=== PATIENT | male | born 1965 | race Caucasian/White ===

== ENCOUNTER 2018-11-04 03:48 | Inpatient (IN) | payer MEDICAID ==
[~2018-11-04] VITALS: Ht 167.6 cm; Wt 50.3 kg
[2018-11-04 04:50] VITALS: BP 122/75
--- NOTE | 2018-11-04 04:50 | NUR ---
MS RN NOTE PT ARRIVED TO UNIT VIA GURNEY ACCOMPANIED BY AMBULANCE PERSONNEL. PT IN STABLE CONDITION, A&O X3 ABLE TO MAKE NEEDS KNOWN. NO SIGNS OF SOB OR DISTRESS, NO C/O PAIN. IV IN R AC #20, IN PLACE H/L. ALL CURRENT NEEDS ATTENDED TO. BED LOW LOCKED, UPPER RAILS UP, AND CALL LIGHT WITHIN REACH. WILL CONT. TO MONITOR. BODY ASSESSED, AND BELONGINGS ACCOUNTED FOR, AND PLACED IN CHART. DR. GALEANA NOTIFIED OF PT ARRIVAL. AWAITING NEW ORDERS.
[2018-11-04 05:00] VITALS: BP 122/75
--- NOTE | 2018-11-04 06:14 | NUR ---
MS RN NOTE PT IN STABLE CONDITION, A&O X3 ABLE TO MAKE NEEDS KNOWN. NO SIGNS OF SOB OR DISTRESS, NO C/O PAIN. IV IN R AC #20, IN PLACE H/L. ALL CURRENT NEEDS ATTENDED TO. BED LOW LOCKED, UPPER RAILS UP, AND CALL LIGHT WITHIN REACH. WILL CONT. TO MONITOR AND ENDORSE TO NEXT SHIFT FOR RAJWINDER. STILL AWAITING ADMISSION ORDERS. DR. GALEANA AWARE.
[2018-11-04] MEDS ORDERED: HYDROCODONE/APAP 5/325MG 1 EACH TABLET PO PRN (06:30)
[2018-11-04] MEDS ORDERED: ONDANSETRON HCL/PF 4 MG/2 ML VIAL IVP PRN (06:30)
[2018-11-04] MEDS ORDERED: MAGNESIUM HYDROXIDE 30 ML UDC PO PRN (06:30)
[2018-11-04] MEDS ORDERED: ACETAMINOPHEN 325 MG TABLET PO PRN (06:30)
--- NOTE | 2018-11-04 07:15 | NUR ---
MS RN OPENING NOTES RECEIVED PATIENT IN BED, ALERT AND AWAKE ORIENTED X4. NO SOB. DENIES ANY C/O PAIN NOR DISCOMFORT. RIGHT AC PERIPHERAL LINE INTACT. RESTING COMFORTABLY IN BED. CALL LIGHT WITHIN REACH. BED IN LOWEST POSITION. BED SIDERAILS UPX2.
[2018-11-04 08:00] VITALS: BP 100/51
[2018-11-04] MEDS: PANTOPRAZOLE 40 MG TABLET.DR PO SCH (08:02)
[2018-11-04 09:07] LABS: CALCIUM, SERUM 8.2 mg/dL (8.5-10.1); CREATININE 1.2 mg/dL (0.6-1.3); POTASSIUM 3.9 mmol/L (3.5-5.1)
[2018-11-04 09:11] LABS: BASOPHILS % (AUTO) 0.5 % (0.0-2.0); EOSINOPHILS % (AUTO) 8.4 % (0.0-6.0); HEMATOCRIT 23 % (39-51); HEMOGLOBIN 7.8 g/dL (13.5-17.5); LYMPHOCYTES # (AUTO) 0.3 /CMM (0.8-4.8); LYMPHOCYTES % (AUTO) 17.8 % (20.0-44.0); MEAN CORPUSCULAR HGB CONC 33 g/dl (31.0-36.0); MEAN CORPUSCULAR VOLUME 83 fL (80-96); MONOCYTES # (AUTO) 0.4 /CMM (0.1-1.30); MONOCYTES % (AUTO) 28.6 % (2.0-12.0); NEUTROPHILS # (AUTO) 0.7 /CMM (1.8-8.9); NEUTROPHILS % (AUTO) 44.7 % (43.0-81.0); PLATELET COUNT (AUTO) 312 /CMM (150-450); RED BLOOD CELL COUNT(AUTO) 2.84 MIL/uL (4.5-6.0)
[2018-11-04 09:13] LABS: ALBUMIN 1.8 g/dL (3.4-5.0); BILIRUBIN,TOTAL 0.1 mg/dL (0.2-1.0); MAGNESIUM 1.7 mg/dL (1.8-2.4)
[2018-11-04 09:19] LABS: THYROID STIMULATING HORMONE 0.99 uIU/mL (0.358-3.74)
--- NOTE | 2018-11-04 09:37 | NUR ---
MS RN NOTES PATIENT AMBULATED WITH PT USING SINGLE CANE. OBSERVED PATIENT WITH STEADY GAIT, JASMIN PT WELL.
[2018-11-04 09:43] LABS: WHITE BLOOD COUNT (AUTO) 1.5 K/uL (4.3-11.0)
--- NOTE | 2018-11-04 09:47 | NUR ---
MS RN NOTES RECEIVED LAB RESULTS OF WBC 1.5 C/O PETER, RELAYED TO DR. DRAPER WITH NO NEW ORDER AT THIS TIME. PATIENT NEUT 44.7
[2018-11-04] MEDS ORDERED: CEFTRIAXONE 1 G in IV D5W 50 ML IV SCH (11:00)
[2018-11-04] MEDS ORDERED: AZITHROMYCIN 500 MG in IV D5W 250 ML IV SCH (12:00)
--- NOTE | 2018-11-04 12:23 | NUR ---
MS RN NOTES ROCEPHIN IV ATB GIVEN LATE DUE TO AWAITING FOR MEDICATION FROM PHARMACY.
[2018-11-04 13:23] LABS: OCCULT BLOOD STOOL NEGATIVE (NEGATIVE)
[2018-11-04] MEDS ORDERED: TBO-FILGRASTIM 300 MCG/0.5 ML SYRINGE SQ SCH (15:00)
[2018-11-04 15:33] LABS: LYMPHOCYTES % (MANUAL) 22 % (16-48); MONOCYTES % (MANUAL) 24 % (0-11.0); NEUTROPHILS % (MANUAL) 48 (42-76)
[2018-11-04 15:34] LABS: EOSINOPHILS % (MANUAL) 6 % (0-4)
[2018-11-04 15:50] VITALS: BP 126/71
--- NOTE | 2018-11-04 16:32 | NUR ---
MS RN NOTES RECEIVED A CALL FROM LAB AND SPOKE TO MALENA, PER MALENA THEY DON'T HAVE ENOUGH STAFF AND WILL SEND THE DIC TO [facility] AND THE RESULT WON'TBE IN TILL LATER.
[2018-11-04 16:41] LABS: THYROID STIMULATING HORMONE 0.797 uIU/mL (0.358-3.74)
[2018-11-04 17:01] LABS: APPEARANCE,URINE Clear (CLEAR); BILIRUBIN,URINE Negative (NEGATIVE); BLOOD, URINE Small Ery/uL (NEGATIVE); COLOR,URINE Yellow (YELLOW); KETONES,URINE Negative (NEGATIVE); LEUKOCYTE ESTERASE ,URINE Negative (NEGATIVE); NITRITE, URINE Negative (NEGATIVE); PH,URINE 5.5 (5.0-8.0); PROTEIN,URINE Negative (NEGATIVE); UGLUCOSE Negative (NEGATIVE); UROBILINOGEN,URINE 0.2 EU/dL (0.2)
[2018-11-04 17:35] LABS: BACTERIA,URINE Rare /HPF (None Seen); SQUAMOUS EPITHELIAL CELL,UR Few /HPF (None Seen); WBC,URINE NONE SEEN /HPF (0-3)
[2018-11-04 18:37] LABS: D-DIMER 3.17 mg/L(FEU (0.17-0.50)
--- NOTE | 2018-11-04 18:45 | NUR ---
MS RN CLOSING NOTES PATIENT IN BED, ALERT AND AWAKE ORIENTED X4. WATCHING TV. NO SOB. DENIES ANY C/O PAIN NOR DISCOMFORT. RIGHT AC G#20 INTACT AND PATENT. IV ROCEPHIN 1GM AND ZITHROMAX 500 MG IV GIVEN ORDERED JASMIN WELL WITHOUT ASE NOTED. RESTING COMFORTABLY IN BED. CALL LIGHT WITHIN REACH. BED IN LOWEST POSITION. BED SIDERAILS UPX2.
--- NOTE | 2018-11-04 19:00 | NUR ---
MS RN NOTE RECEIVED PT. STABLE CONDITION A&O X3. CURRENTLY IN BED WATCHING TV. NO SIGNS OF SOB OR DISTRESS, NO C/O PAIN. IV IN R AC IN PLACE. ALL CURRENT NEEDS MET. BED LOW, LOCKED, UPPER RAILS UP AND CALL LIGHT WITHIN REACH. WILL CONT. TO MONITOR.
[2018-11-04 20:00] VITALS: BP 114/73
--- NOTE | 2018-11-05 06:28 | NUR ---
MS RN NOTE PT. STABLE CONDITION A&O X3. CURRENTLY IN BED,RESTING, EASILY AROUSABLE WHEN NAME IS CALLED. NO SIGNS OF SOB OR DISTRESS, NO C/O PAIN. IV IN R AC IN PLACE. ALL CURRENT NEEDS MET. BED LOW, LOCKED, UPPER RAILS UP AND CALL LIGHT WITHIN REACH. WILL CONT. TO MONITOR AND ENDORSE TO NEXT SHIFT FOR RAJWINDER.
[2018-11-05 08:00] VITALS: BP 111/64
--- NOTE | 2018-11-05 08:00 | NUR ---
m/s paper carrier: initial assessment received pt in bed awake, a/ox3; passive and withdrawn. encouraged to verbalized feelings. no c/o pain or any discomfort. instructed to call for assistance. will continue to monitor.
[2018-11-05] MEDS: PANTOPRAZOLE 40 MG TABLET.DR PO SCH (08:48)
--- NOTE | 2018-11-05 10:05 | NUR ---
m/s detention attendant: md visit seen by payam zimmer with new orders. order acknowledged. for social service consult for referral to the nearest HIV clinic. pt aware. pt for d'c planning today per acnp.
[2018-11-05 10:18] LABS: BASOPHILS % (AUTO) 0.3 % (0.0-2.0); HEMATOCRIT 23 % (39-51); HEMOGLOBIN 7.7 g/dL (13.5-17.5); LYMPHOCYTES # (AUTO) 0.5 /CMM (0.8-4.8); LYMPHOCYTES % (AUTO) 3.4 % (20.0-44.0); MEAN CORPUSCULAR HGB CONC 33 g/dl (31.0-36.0); MEAN CORPUSCULAR VOLUME 82 fL (80-96); MONOCYTES # (AUTO) 1.2 /CMM (0.1-1.30); MONOCYTES % (AUTO) 8.9 % (2.0-12.0); NEUTROPHILS # (AUTO) 11.3 /CMM (1.8-8.9); NEUTROPHILS % (AUTO) 85.4 % (43.0-81.0); PLATELET COUNT (AUTO) 305 /CMM (150-450); RED BLOOD CELL COUNT(AUTO) 2.85 MIL/uL (4.5-6.0); WHITE BLOOD COUNT (AUTO) 13.3 K/uL (4.3-11.0)
[2018-11-05 10:21] LABS: CALCIUM, SERUM 8.2 mg/dL (8.5-10.1); CREATININE 1.1 mg/dL (0.6-1.3); POTASSIUM 3.8 mmol/L (3.5-5.1)
--- NOTE | 2018-11-05 11:32 | NUR ---
WOUND CARE CONSULT: PT PRESENTS WITH SACRAL SCARRING, PRESENT ON ADMISSION. RECOMMENDATIONS MADE FOR SKIN PROTECTION. DISCUSSED WITH NURSING STAFF. WILL SEE PRN. OAKES IN AGREEMENT WITH PLAN OF CARE. PT IS CONTINENT. Addendum: 11/05/18 at 1133 by MERISSA HANLEY WNDNU Amended: Links added.
--- NOTE | 2018-11-05 12:26 | NUR ---
Social service consult requested by PHYLICIA Powell for referral to the nearest HIV clinic. Pt. is a 52 year old male who was admitted to [facility] for syncope.ALBA met with pt. soila. Pt. is alert and oriented 4. Pt. has tattoos all over. Pt states he was diagnosed with HIV on July 2017. The pt. states that he was infected with HIV from his girlfriend. The patient currently resides with his father, he is not , and he does not have any children. The patient denies tobacco, alcohol, or illicit drug use. However, he admits to chronic marijuana use. Pt. is non-compliant with his HIV medications. ALBA referred pt. to [facility] located at [address] [place] [address]. [address], [place], [id number] . ALBA encouraged pt. to follow up with the clinic. No other social service needs are requested at this time. SW is available, if needed.
[2018-11-05 13:28] VITALS: BP_SYST 103; BP_SYST 105; BP_DIAS 61; BP_DIAS 76; BP_DIAS 78
--- NOTE | 2018-11-05 13:28 | NUR ---
m/s soil scientist: neuro consult seen and examined by brandy (bernie) with new order. order acknowledged. orthostatic blood pressure done as ordered.
--- NOTE | 2018-11-05 15:15 | NUR ---
m/s slide fasteners inspector: notes taken down for ct head via w/c at this time.
--- NOTE | 2018-11-05 15:30 | NUR ---
m/s ground instructor basic: notes pt back from ct scan. instructed to call for assistance. will monitor.
[2018-11-05 16:00] VITALS: BP 109/69
--- NOTE | 2018-11-05 18:55 | NUR ---
m/s coil cutter: notes pt resting comfortable with no distress noted. needs attended. ct head result still pending. instructed to call for assistance. will continue to monitor.
--- NOTE | 2018-11-05 19:15 | NUR ---
m/s finisher wallboard and plasterboard: notes report given to kelton (josh) for continuity of care.
--- NOTE | 2018-11-05 19:25 | NUR ---
MSRN AWAKE, LIMITED VERBAL, NO RESPIRATORY DISTRESS. DOES NOT VERBALIZED ANY DISCOMFORTS OF THIS TIME. REMINDED TO CALL STAFF FOR ANY ASSISTANCE OR DISCOMFORTS CALL LIGHT WITHIN REACH. SAFETY PRECAUTIONS EMPHASIZED. CLOSELY WATCHED.
[2018-11-05 20:00] VITALS: BP 103/67
[2018-11-05 20:40] LABS: *SPE A/G RATIO 0.5 (0.7-1.7); *SPE ALBUMIN 2.2 g/dL (2.9-4.4); *SPE ALPHA-1-GLOBULIN 0.2 g/dL (0.0-0.4); *SPE ALPHA-2-GLOBULIN 0.7 g/dL (0.4-1.0); *SPE BETA GLOBULIN 1.2 g/dL (0.7-1.3); *SPE GLOBULIN, TOTAL 4.7 g/dL (2.2-3.9); *SPE M-SPIKE Not Observed g/dL (Not Observed); *SPEGAMMA GLOBULIN 2.6 g/dL (0.4-1.8); FOLIC ACID 7.7 ng/mL (>3.0); IMMUNOGLOBULIN A, SERUM 1286 mg/dL (90-386); IMMUNOGLOBULIN G, SERUM 2471 mg/dL (700-1600); IMMUNOGLOBULIN M, SERUM 153 mg/dL (20-172)
[2018-11-05 20:40] LABS: *% CD 4 POS. LYMPH 5.1 % (30.8-58.5); *% CD 8 POS. LYMPH 64.9 % (12.0-35.5); *ABSOLUTE CD 4 HELPER 20 /uL (359-1519); *ABSOLUTE CD 8 SUPPRESSOR 260 /uL (109-897); *BASOS 1 % (Not Estab.); *CD4/CD8 RATIO 0.08 (0.92-3.72); *COMMENTS Note: (.); *EOS 10 % (Not Estab.); *EOS, ABSOLUTE 0.2 x10E3/uL (0.0-0.4); *HCT 24.5 % (37.5-51.0); *IMMATURE GRANULOCYTES 1 % (Not Estab.); *LYMPHOCYTES 25 % (Not Estab.); *LYMPHS, ABSOLUTE 0.4 x10E3/uL (0.7-3.1); *MCH 26.9 pg (26.6-33.0); *MCHC 32.7 g/dL (31.5-35.7); *MCV 83 fL (79-97); *MONOCYTES 20 % (Not Estab.); *MONOS, ABSOLUTE 0.3 x10E3/uL (0.1-0.9); *NEUTROPHILS 43 % (Not Estab.); *NEUTROPHILS, ABSOLUTE 0.7 x10E3/uL (1.4-7.0); *PLT 296 x10E3/uL (150-450); *RBC 2.97 x10E6/uL (4.14-5.80); *RDW 14.2 % (12.3-15.4)
--- NOTE | 2018-11-05 21:12 | NUR ---
MSRN RESTING QUIETLY, NO NEEDS MADE OF THIS TIME. SNACKS PROVIDED. CLOSELY WATCHED.
[2018-11-05 22:02] LABS: NEUTROPHILS % (MANUAL) 69 (42-76)
[2018-11-05 22:05] LABS: BAND % (MANUAL) 20 % (0.0-5.0); LYMPHOCYTES % (MANUAL) 2 % (16-48); MONOCYTES % (MANUAL) 9 % (0-11.0)
--- NOTE | 2018-11-06 06:58 | NUR ---
MSRN REMAINS UNCHANGED.
[2018-11-06 08:00] VITALS: BP 101/62
[2018-11-06] MEDS: PANTOPRAZOLE 40 MG TABLET.DR PO SCH (08:57)
--- NOTE | 2018-11-06 10:15 | NUR ---
payam zimmer np in and dc order given.
--- NOTE | 2018-11-06 11:40 | NUR ---
pt. refusing discharge photos.
--- NOTE | 2018-11-06 14:10 | NUR ---
given all dc instructions hep lock out.belonging sheet signed.aware of needed appts.to make.pt. has paperwork.ambulated by rn to [employer] and [facility] here to transport pt. home.
== END 2018-11-06 14:30 | disposition home or self-care (01) | DRG 48 ==
LOC: MED 04:37
PROVIDERS: ADMIT Nurse Practitioner Acute Care; ATTEND Nurse Practitioner Acute Care
DX: G90.8 Other disorders of autonomic nervous system (principal); E43 Unspecified severe protein-calorie malnutrition; R64 Cachexia; B20 Human immunodeficiency virus [HIV] disease; E83.42 Hypomagnesemia; F12.20 Cannabis dependence, uncomplicated; D50.9 Iron deficiency anemia, unspecified; D72.819 Decreased white blood cell count, unspecified; Z91.14 Patient's other noncompliance with medication regimen; Z68.1 Body mass index [BMI] 19.9 or less, adult
CPT/HCPCS: 36415; 70450-TC; 71045-TC; 80048-TC; 80053-TC; 80061-TC; 81000-TC; 82272-TC; 82728-TC; 82784; 83540-TC; 83735-TC; 84100-TC; 84155; 84165; 84443-TC; 85025-TC; 85396; 86334; 86360; 87081-TC; 87536; 87806; 97116-TC; 97530-TC; G0378; J0456; J0696; J1442; J7050; J7060